=== PATIENT | male | born 1960 | race Caucasian/White ===

== ENCOUNTER 2017-03-08 10:07 | Emergency (ER) | payer BC, OTHER ==
[2017-03-08 10:22] VITALS: TEMP 98
[2017-03-08] MEDS ORDERED: KETOROLAC 30 MG/1 ML SDV IVP ONE (11:16)
[2017-03-08 12:03] VITALS: BP 135/74; PULSE 51; RESP 16; O2SAT 97
--- NOTE | 2017-03-08 12:25 | EDPHY ---
H & P Stated Complaint: recent long travel- c/o Rt hip to foot pain/burning x 3 days Time Seen by Provider: 03/08/17 10:36 HPI/ROS: CHIEF COMPLAINT: Right leg pain History by patient HISTORY OF PRESENT ILLNESS: 56-year-old man with history of hypertension presents complaining right leg pain which he describes as a burning down his entire leg starting near his hip extending past his knee. The pain also feels crampy in nature and seems to be worse sometimes at night. It began a week ago after a 20 hour airplane flight to [facility]. He says he tries to walk it out but it does not help. He has taken ibuprofen with minimal relief. He has tried hydrocodone and cyclobenzaprine with minimal relief. He had these medications left over from an episode of sciatica. He says this pain feels quite different from his sciatica which was only on the back of his leg. He denies any swelling, redness or fever. There has been no direct trauma. He denies any bowel or bladder problems. He denies any back pain REVIEW OF SYSTEMS: As in HPI, and all other systems reviewed and are negative Source: Patient, Family - Personal History Current Tetanus Diphtheria and Acellular Pertussis (TDAP): Yes - Social History Smoking Status: Never smoked - Physical Exam Exam: General Appearance: Alert and no distress. Eyes: Pupils equal and round no injection. Musculoskeletal: Neck is supple and nontender. Extremities: Right leg without swelling, redness or deformity. Right hip full range of motion with some pain on flexion. Right knee full range of motion without pain. Right ankle full range of motion without pain. DP and PT pulses 2 + and equal bilaterally, distal sensation intact, strength is 5/5 and equal bilaterally. Straight leg test is negative on the left and positive for ipsilateral buttock pain on the right. . Back: No bony tenderness, no CVA tend, no deformity Skin: No rashes or lesions. Constitutional: Initial Vital Signs Temperature (C) 36.6 C 03/08/17 10:19 Heart Rate 58 L 03/08/17 10:19 Respiratory Rate 18 03/08/17 10:19 Blood Pressure 150/87 H 03/08/17 10:19 O2 Sat (%) 94 03/08/17 10:19 O2 Delivery Mode Room Air Allergies/Adverse Reactions: No Known Allergies Allergy (Unverified 03/08/17 10:18) Home Medications: Medication Instructions Recorded Hydrochlorothiazide 03/08/17 Lidocaine 5% [Lidoderm 5% Patch 1 ea TD DAILY #30 patch 03/08/17 (*)] Losartan Potassium 03/08/17 Naproxen 500 mg PO BID PRN #20 tablet 03/08/17 Medical Decision Making ED Course/Re-evaluation: 56-year-old man presents complaining of right leg pain with unremarkable exam and no evidence of neurovascular compromise. Clinically there is no evidence of DVT however the patient was very worried about this because of his long plane flight. A D-dimer was done and was negative, ruling out DVT in this low pretest probability patient. Patient was given IV ketorolac with improvement in his pain. I suspect this is a musculoskeletal problem potentially related to his iliotibial band. We discussed conservative measures and home care. Patient will follow up with primary care physician if his symptoms persist. - Data Points Laboratory Results: 03/08/17 11:00 D-Dimer < 0.27 ug/mLFEU ug/mLFEU (0.00-0.50) Medications Given: Discontinued Medications Ketorolac Tromethamine (Toradol) 15 mg IVP EDNOW ONE Stop: 03/08/17 11:17 Last Admin: 03/08/17 11:25 Dose: 30 mg Departure - Departure Disposition: Home, Routine, Self-Care Clinical Impression: Right leg pain, Iliotibial band syndrome, right leg Condition: Good Instructions: Iliotibial Band Syndrome (ED) Additional Instructions: You were seen by Dr. Giselle Butterfield today. Take Naprosyn as prescribed twice a day for pain. Use a lidocaine patches as needed for pain. Follow up with your primary care physician if symptoms persist. Return for any worsening or new concerns. Referrals: Kuldeep Wilson MD [Primary Care Provider] - As per Instructions Prescriptions: Lidocaine 5% [Lidoderm 5% Patch (*)] 1 ea TD DAILY #30 patch Naproxen 500 mg PO BID PRN #20 tablet PRN Reason: pain
== END 2017-03-08 12:40 | disposition home or self-care (01) ==
LOC: CED 10:07
DX: M76.31 Iliotibial band syndrome, right leg (principal)
CPT/HCPCS: 85378-PO; 96374; J1885

== ENCOUNTER 2017-03-09 15:44 | Observation (INO) | payer BC, OTHER ==
[2017-03-09] MEDS ORDERED: DIAZEPAM 10 MG/2 ML SYR IVP ONE (16:16)
--- NOTE | 2017-03-09 16:20 | EDPHY ---
H & P Smoking Status: Never smoked Time Seen by Provider: 03/09/17 15:58 HPI/ROS: CHIEF COMPLAINT: Back pain, right leg pain, weakness HISTORY OF PRESENT ILLNESS: 56-year-old male presents to the emergency department complaining of low back pain and pain in his right leg. Patient states 1 week ago he was traveling on a long plane ride, over 20 hours, and within about a day or to he developed pain in his lower back. He is having pain radiating down his right leg. He states that it is severe. He is feeling weakness in his right leg and having difficulty walking. He denies bowel or bladder incontinence. Denies numbness or tingling in his upper or lower extremities. He denies chest pain or difficulty breathing. He was seen in the emergency department yesterday and was treated with injection of Toradol with some improvement. He was sent home on lidocaine patches and naproxen sodium. He has been taking these medications as prescribed without relief. He did not sleep at all last night. He has pain with movement as well as especially with weight-bearing and walking. He also has pain with sitting. He denies any other reported trauma. REVIEW OF SYSTEMS: Constitutional: No fever, no chills. Eyes: No double or blurry vision. ENT: No sore throat. Respiratory: No cough, no shortness of breath. Cardiac: No chest pain. Gastrointestinal: No abdominal pain, vomiting or diarrhea. Genitourinary: No dysuria. Musculoskeletal: Back pain as above. No neck pain. Skin: No rashes. Neurological: No headache. (Arabella Camacho) Past Medical/Surgical History: Hypertension (Janice,Arabella M) Social History: (Jesenia Camachoa M) Physical Exam: General Appearance: Alert, ihzd-zu-ecifsyeg distress. Eyes: Pupils equal and round. Extraocular motions are all intact. ENT: Mouth: Mucous membranes moist. Respiratory: No wheezing, rhonchi, or rales, lungs are clear to auscultation. Cardiovascular: Regular rate and rhythm. Gastrointestinal: Abdomen is soft and nontender, no masses, no rebound or guarding, bowel sounds normal. Neurological: Alert and oriented x 3, cranial nerves II through XII grossly intact Skin: Warm and dry, no rashes. Musculoskeletal: Nontender to palpate along the cervical, thoracic or lumbar spine. Neck is supple. Extremities: Full range of motion and no peripheral edema. Positive straight leg raise on the right. Reflexes are 2+ and equal for lower extremities bilaterally. Patient has difficulty ambulating. He is holding onto the side of the bed for balance. Psychiatric: Patient is oriented X 3, there is no agitation. (Arabella Camacho) Constitutional: Initial Vital Signs Temperature (C) 36.5 C 03/09/17 15:47 Heart Rate 55 L 03/09/17 15:47 Respiratory Rate 18 03/09/17 15:47 Blood Pressure 156/87 H 03/09/17 15:47 O2 Sat (%) 95 03/09/17 15:47 O2 Delivery Mode Room Air Allergies/Adverse Reactions: No Known Allergies Allergy (Verified 03/09/17 15:47) Home Medications: Medication Instructions Recorded Naproxen 500 mg PO BID PRN #20 tablet 03/08/17 Losartan Potassium [Cozaar 25 mg 25 mg PO DAILY 03/09/17 (*)] Triamterene/Hydrochlorothiazid 1 each PO DAILY 03/09/17 [Triamterene-Hctz 37.5-25 mg Tb] Cyclobenzaprine [Flexeril 10 MG 10 mg PO TID PRN #60 tab 03/10/17 (*)] Lidocaine 5% [Lidoderm 5% Patch 1 ea TD DAILY #10 patch 03/10/17 (*)] Patch Removal 1 ea TD DAILY21 patch 03/10/17 predniSONE 2 tab PO DAILY #8 tablet 03/10/17 Medical Decision Making - Diagnostics Imaging: Discussed imaging studies w/ call or contact centre manager Radiologist ED Course/Re-evaluation: 56-year-old male presents to the emergency department with severe pain in his right leg and low back. The patient was initially seen in the emergency department yesterday and states that he has had continued ongoing pain and did not sleep at all last night. The patient describes weakness with walking. Given his ongoing pain, as well as weakness in his right lower leg, I recommended MRI of the lumbar spine. MRI reveals diffuse multilevel degenerative changes as well spinal stenosis. The patient was initially given IV Valium and IV Solu-Medrol for pain. He was feeling better although his pain was starting to come back. He was given 1 Percocet p. o. and felt that this did slightly help his pain although continued to have pain especially when he was trying to walk. Patient agreed to admission for pain control. I did speak with the on-call neurosurgeon, Dr. Warner, who will see this patient in the morning. The patient will be admitted to Dr. García, hospitalist. (Arabella Camacho) I did not see this patient while he was in the emergency department. However his care was discussed with the PA while the patient was in the department. I agree with treatment plan and management (Ifeanyi Mao) Differential Diagnosis: Back pain including but not limited to lumbar radiculopathy, sciatica, muscular pain, herniated disc, spine fracture, intra-abdominal causes and urinary tract infection. (Arabella Camacho) - Data Points Medications Given: Discontinued Medications Acetaminophen (Tylenol) 650 mg PO Q4HRS PRN PRN Reason: Pain, Mild/Fever, Can Take PO Stop: 09/05/17 19:44 Last Admin: 03/09/17 22:39 Dose: 650 mg Diazepam (Valium Injection) 5 mg IVP EDNOW ONE Stop: 03/09/17 16:17 Last Admin: 03/09/17 16:24 Dose: 5 mg Diazepam (Valium) 10 mg PO Q6HRS PRN PRN Reason: Anxiety, Able to Take PO Stop: 09/05/17 21:40 Last Admin: 03/09/17 22:39 Dose: 10 mg Enoxaparin Sodium (Lovenox) 40 mg SC DAILY EDI Stop: 09/06/17 08:59 Last Admin: 03/10/17 11:23 Dose: 40 mg Lidocaine (Lidoderm 5%) 1 ea TD DAILY EDI Stop: 09/06/17 08:59 Last Admin: 03/10/17 09:17 Dose: 1 ea Losartan Potassium (Cozaar) 25 mg PO DAILY EDI Stop: 09/06/17 08:59 Last Admin: 03/10/17 11:21 Dose: 25 mg Methylprednisolone (Medrol) 8 mg PO BID@0730,2100 EDI Stop: 03/10/17 21:01 Last Admin: 03/10/17 07:20 Dose: 8 mg Methylprednisolone (Medrol) 4 mg PO BID@1300,1900 EDI Stop: 03/10/17 19:01 Last Admin: 03/10/17 13:33 Dose: 4 mg Methylprednisolone Sodium Succinate (Solu-Medrol) 125 mg IVP EDNOW ONE Stop: 03/09/17 17:59 Last Admin: 03/09/17 18:49 Dose: 125 mg Ondansetron HCl (Zofran Odt) 4 mg PO Q4HRS PRN PRN Reason: Nausea/Vomiting, Use 1st Stop: 09/05/17 19:44 Last Admin: 03/10/17 09:17 Dose: 4 mg Oxycodone HCl (Oxycodone Ir) 5 - 10 mg PO Q4HRS PRN PRN Reason: Pain, Severe Able to Take PO Stop: 03/19/17 22:12 Last Admin: 03/10/17 07:18 Dose: 10 mg Oxycodone/Acetaminophen (Percocet 5/325) 1 tab PO EDNOW ONE Stop: 03/09/17 18:51 Last Admin: 03/09/17 18:53 Dose: 1 tab Triamterene/HCTZ (Maxzide-25) 1 each PO DAILY EDI Stop: 09/06/17 08:59 Last Admin: 03/10/17 11:23 Dose: 1 each Departure - Departure Disposition: [facility] Acute Clinical Impression: Lumbar radiculopathy Low back pain Qualifiers: Chronicity: acute Back pain laterality: right Sciatica presence: with sciatica Sciatica laterality: sciatica of right side Qualified Code(s): M54.41 - Lumbago with sciatica, right side Condition: Good
[2017-03-09] MEDS ORDERED: methylPREDNISolone SOD SUCC 125 MG/2 ML VIAL IVP ONE (17:58)
[2017-03-09] MEDS ORDERED: methylPREDNISolone SOD SUCC 125 MG/2 ML VIAL ONE (18:47)
[2017-03-09] MEDS ORDERED: OXYCODONE/APAP 5/325 TAB PO ONE (18:50)
[2017-03-09] MEDS ORDERED: ONDANSETRON DISINTEGRATING 4 MG TAB PO PRN (19:45)
[2017-03-09] MEDS ORDERED: ONDANSETRON 4 MG/2 ML VIAL IVP PRN (19:45)
[2017-03-09] MEDS ORDERED: ACETAMINOPHEN 325 MG TAB PO PRN (19:45)
[2017-03-09] MEDS ORDERED: CYCLOBENZAPRINE 10 MG TAB PO PRN (19:46)
[2017-03-09] MEDS ORDERED: DIAZEPAM 5 MG TAB PO PRN ×2 (21:41→22:13)
[2017-03-09] MEDS ORDERED: NAPROXEN SODIUM 220 MG TAB PO PRN (21:45)
[2017-03-09] MEDS ORDERED: methylPREDNISolone 4 MG TAB PO SCH ×2 (22:00)
[2017-03-09] MEDS: oxyCODONE IR 5 MG TAB PO PRN (22:39)
--- NOTE | 2017-03-10 01:43 | GHP ---
[f rep st] HISTORY AND PHYSICAL DATE OF ADMISSION: 03/09/2017 CHIEF COMPLAINT: Back pain. HISTORY OF PRESENT ILLNESS: The patient is a 56-year-old male with history of hypertension and back pain in the past, who presented to the ER with severe right-sided low back pain that radiates down his right leg. A week ago, he was traveling to [place] which was a 20-hour flight and developed ba ck pain while over there. He described initially as a burning sensation in his right buttock. Nadir calderon noticed this pain on Tuesday. He awoke Tuesday, the pain extended down to his leg and felt like it was in boiling water. He is having difficulty walking due to the pain. He is now having crampin g throughout the hip, thigh, all the way to his foot. He was seen in the ER yesterday and was treated with Toradol and prescribed Lidoderm patch and napro xen. These have not helped. He has been unable to sleep since Tuesday. He did have minimal impro vement with Advil at home. Denies any bladder or urinary incontinence. REVIEW OF SYSTEMS: I completed a 10-point review of systems, negative except as noted in HPI. PAST MEDICAL HISTORY: 1. Prior back pain. 2. Hypertension. PAST SURGICAL HISTORY: July 2016: A testicular cyst was removed. SOCIAL HISTORY: Lives in [place] with his . Alcohol 3 times a week. 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 FAMILY HISTORY: Maternal grandmother with colon cancer, CVA. Father with hypertension and AFib. HOME MEDICATIONS: Triamterene/hydrochlorothiazide 37.5/25 mg, naproxen, losartan 25 mg daily, Lidod erm patch. ALLERGIES: No known drug allergies. PHYSICAL EXAMINATION: VITAL SIGNS: Temperature 36.3, blood pressure 131/76, heart rate 50s, respir ations 18, 97% on room air. GENERAL: The patient is sitting up, eating. No acute distress. HEENT : PERRLA. EOMI. Oropharynx clear. CV: Regular rate and rhythm. No murmurs, gallops, or rubs. LUNGS: Clear to auscultation bilaterally. ABDOMEN: Soft, nontender, nondistended. Positive bowel sounds. : No suprapubic tenderness. MUSCULOSKELETAL: 5/5, upper and lower extremity strength. Noted right-sided paraspinal spasm, tender with palpation. NEURO: 2 through 12 intact. Normal s ensation to touch. PSYCH: Alert and oriented x3. LABS: D-dimer was negative, yesterday 0.27. MRI of lumbar spine: L4-L5 left paramedian disk herni ation with bilateral facet arthropathy resulting in mid central canal stenosis and zqbv-[id number]-hqujrtbr left lateral recess stenosis and slight dorsal displacement of left L5 nerve root. L3-L4 left far l ateral disk herniation causing left neural foraminal stenosis and abutting left L3 nerve ganglion. L5-S1 moderate bilateral neural foraminal stenosis secondary to moderate degenerative disk disease. ASSESSMENT AND PLAN: 1. Acute back pain: MRI showing central canal stenosis, more on the left. His pain is improved af ter Valium and Solu-Medrol in the emergency room. Will continue Valium, Tylenol, and oxycodone over night and start on Medrol pack in the morning. Neurosurgery to evaluate. 2. Benign hypertension: Continue home medications. 3. Diet: Regular. 4. DVT prophylaxis: Lovenox. 5. Disposition: Patient warrants observation admission given acute back pain limiting gait and ankit cing at risk for fall and subsequent harm. Can likely discharge in the morning if pain improved. /[id number]/MODL
[2017-03-10] MEDS: oxyCODONE IR 5 MG TAB PO PRN (07:18)
[2017-03-10] MEDS ORDERED: methylPREDNISolone 4 MG TAB PO SCH ×2 (07:30→13:00)
[2017-03-10 08:29] VITALS: PULSE 59; RESP 55; TEMP 98.2; O2SAT 92
[2017-03-10] MEDS ORDERED: ENOXAPARIN 40 MG/0.4 ML SYR SC SCH (09:00)
[2017-03-10] MEDS ORDERED: TRIAMTERENE/HCTZ 37.5/25 1 EACH TAB PO SCH (09:00)
[2017-03-10] MEDS ORDERED: LOSARTAN POTASSIUM 25 MG TAB PO SCH (09:00)
[2017-03-10] MEDS ORDERED: LIDOCAINE 5% 1 EA PATCH TD SCH (09:00)
[2017-03-10 11:24] VITALS: BP 142/79
--- NOTE | 2017-03-10 13:07 | PDDCSUM ---
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 There was some loss of sensation in toes in the right foot but no other sensory abnormalities per se objectively and no weakness or bowel or bladder dysfunction. There are no fevers and no injury. MRI showed some degenerative changes with moderate neural impingement at the right side L5-S1. There is also some hhjh-hg-qtsaujtp changes on the left. No tumors. The patient was admitted the hospital treated overnight with steroid, Lidoderm patch, nonsteroidal anti-inflammatory, and muscle relaxer. He did have some excellent improvement in symptoms. Rates his pain today sitting up in the side of bed as 2/10 and states he has been up walking without difficulty. His and numbness in the toes has resolved. Continues to avoid bowel and bladder normally. He is stable for discharge I did review with him warning signs toe watch for should he require more urgent attention. I also reviewed with him the various types of therapy can be applied is quite familiar with these. I gave him the name of local physiatry wrist and chiropractor as he did not have any connections here in the [place] area. He will also need to see his primary care PENDING TEST RESULTS: none MEDICATION CHANGES: Prednisone 40 mg per day for 4 days Lidoderm patch as needed For Flexeril as needed Aleve as needed FOLLOW-UP PLAN: With Dr. Wilson his primary care in 1-2 weeks I given name and phone number for Dr. Juan Luis Heredia and Dr. Ifeanyi Thomason Greater than 35 minutes bedside and care coordination time today
--- NOTE | 2017-03-10 13:40 | GCON ---
[f rep st] CONSULTATION NEUROSURGERY CONSULTATION THE PATIENT WAS SEEN AND EVALUATED ON THE [facility]AL [facility]ARE FLOOR [facility] AT APPROX IMATELY 7:20 A.M. ON 03/10/2017 DATE OF CONSULTATION: 03/10/2017 HISTORY OF PRESENT ILLNESS: The patient is a 56-year-old man with a history of hypertension, who stoner s had back and some leg pain in the past. His pain was primarily on the left leg and hip at that ti me, and he had some chiropractic manipulations which made that better. He more recently has been stoner ving some pain in the low back and then took a 20-hour flight from [place] a few days ago which mad e the pain quite severe. The pain is in the right side of the low back which was radiating down the leg, in a primarily non-dermatomal pattern. He was seen at a free-standing ER the day before yeste rday and was given Toradol and prescribed a Lidoderm patch and naproxen, which did not help very muc h. He was seen in the [facility] ER yesterday and admitted to the hospitalists serv ice for pain control at that point. He had an MRI of the lumbar spine which shows [id number] degenerative changes, primarily on the left side at L3-4, L4-5, and L5-S1. He has some significant degenerative disk disease at L4-5, but really only mild lateral recess or foraminal stenosis and no obvious nerve compression. REVIEW OF SYSTEMS: A 10-point review of systems is negative other than that described in HPI. PAST MEDICAL HISTORY: 1. Back pain. 2. Hypertension. PAST SURGICAL HISTORY: Testicular cyst resection. ALLERGIES: No known drug allergies. MEDICATIONS: 1. Triamterene/hydrochlorothiazide. 2. Naproxen. 3. Losartan. 4. Lidoderm patch. SOCIAL HISTORY: Patient lives with his . 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 He dri nks only social alcohol and does not smoke. FAMILY HISTORY: Positive for colon cancer, stroke, hypertension, and atrial fibrillation. PHYSICAL EXAMINATION: He is currently afebrile with normal stable vital signs. He is awake, alert, and oriented x3. His upper extremity strength is 5/5 in all muscle groups. Sensation is intact. In the lower extremities, his hip flexors are 5/5 bilaterally, knee flexion and extension and planta r and dorsiflexion are 5/5 bilaterally. Straight leg raise is negative. His sensation is normal, a nd deep tendon reflexes are normal. He does have some localized pain with palpation over the right SI joint but other SI joint provocative maneuvers, such as Stacy test, are negative at this moment. IMAGING REVIEW: See HPI. LABORATORY REVIEW: He did not have any labs performed in the ER at this admission. ASSESSMENT AND PLAN: The patient is a 56-year-old man with recurring back pain periodically. His m ost recent episode was in the right low back, which radiated down the leg in a primarily non-dermato mal pattern. On exam, his pain was mostly centered over the right sacroiliac joint, and I wonder if this may have been some sacroiliac dysfunction that led to his latest episode, given the long perio d of sitting on the plain, which would be typical for this. There is not much on his MRI scan to ex plain right-sided leg pain; although, he has some ldye-vi-pbhhmgen degenerative disease on the left primarily. Either way, his pain is better at this point, and really insignificant at this point. A gree with sending him home with some anti-inflammatories and possibly a Medrol Dosepak, which would likely help regardless of his pathology. I discussed with him the possibility of outpatient physica l therapy and told him that we can send him with a referral for outpatient physical therapy. I talk ed to him about followup, but there is no need for a neurosurgical followup at this time, unless his pain recurs or he has further problems, in which case I would be happy to see him in the office. Edmundo long is quite happy with this plan, and we will proceed as described. Please do not hesitate to contact us with any further questions or concerns. Thanks for the kind co nsultation. Sincerely, /[id number]/MODL
[2017-03-10] MEDS ORDERED: PATCH REMOVAL 1 EA PATCH TD SCH (21:00)
[2017-03-11] MEDS ORDERED: methylPREDNISolone 4 MG TAB PO SCH ×2 (07:30→21:00)
[2017-03-12] MEDS ORDERED: methylPREDNISolone 4 MG TAB PO SCH (07:30)
[2017-03-13] MEDS ORDERED: methylPREDNISolone 4 MG TAB PO SCH (07:30)
[2017-03-14] MEDS ORDERED: methylPREDNISolone 4 MG TAB PO SCH (07:30)
[2017-03-15] MEDS ORDERED: methylPREDNISolone 4 MG TAB PO SCH (07:30)
== END 2017-03-10 14:02 | disposition home or self-care (01) ==
LOC: F3N 20:42
PROVIDERS: ADMIT Internal Medicine; ATTEND Internal Medicine
DX: M54.41 Lumbago with sciatica, right side (principal)
CPT/HCPCS: 72148; 96374; 96375; 99285; G0378; J1650